=== PATIENT | female | born 1975 | race Caucasian/White ===

== ENCOUNTER → 2024-01-27 06:59 | Outpatient (REF) | payer BC, SELFPAY | LOC: RAD 06:59 | PROVIDERS: ATTENDING PHYSICIAN Obstetrics & Gynecology; FAMILY PHYSICIAN Nurse Practitioner Family | DX: R10.2 Pelvic and perineal pain (principal) | CPT/HCPCS: 76830; 76856 ==

== ENCOUNTER → 2024-04-17 18:31 | Outpatient (REF) | payer BC, SELFPAY | LOC: WDC 18:31 | PROVIDERS: ATTENDING PHYSICIAN Obstetrics & Gynecology Gynecology | DX: Z12.31 Encounter for screening mammogram for malignant neoplasm of breast (principal) | CPT/HCPCS: 77063; 77067 ==

== ENCOUNTER → 2024-06-05 15:44 | Outpatient (REF) | payer BC, SELFPAY | LOC: RAD 15:44 | PROVIDERS: ATTENDING PHYSICIAN Obstetrics & Gynecology; FAMILY PHYSICIAN Nurse Practitioner Family | DX: N83.291 Other ovarian cyst, right side (principal) | CPT/HCPCS: 76830; 76856 ==

== ENCOUNTER 2025-01-27 12:57 | Emergency (ER) | payer BC, SELFPAY ==
[2025-01-27 12:58] VITALS: BP 150/90
--- NOTE | 2025-01-27 13:33 | ED.SKININJ ---
HPI-Injury
General
Chief Complaint: Skin Problem
Source: patient
Exam Limitations: none
Time Seen by Provider: 01/27/25 13:08
Nursing documentation reviewed up to this point in time: agreed with
History of Present Illness-Injury
Initial Injury comments:
49-year-old female with no past medical history was in [place] last week. 3 days ago while in [place] she noted a small pimple on her right upper arm, she admits she has been picking at it and it has become more red, swollen and tender. She denies
F/C/N/V.
Past History
Past History
ED Past Medical History: None
ED Past Surgical History:
Social History
Tobacco: Non-smoker
Alcohol: Occasional
Personal: Single
Living: with roommate
Employment: Employed
Review of Systems
Review of Systems
Allergies reviewed?: Yes
All Other Systems: ROS reviewed and negative except as documented in HPI and ROS
Constitutional: Denies fever or chills
ABD/GI: Denies nausea
Skin: Reports other (Infection right upper arm)
Skin Exam
Abscess
Right anterior mid upper arm:
Description of abscess: fluctuant and well organized
Surrounding skin:: reddened around abscess (To about 3 cm out)
Phy Exam
Physical Exam
Physical Exam:
GENERAL: No acute distress. A&Ox3.
CONSTITUTIONAL: Afebrile.
RESPIRATORY: Regular respirations, nonlabored, lungs clear.
CARDIOVASCULAR: Regular rate and rhythm, no murmurs, no rubs.
MUSCULOSKELETAL: Full range of motion right upper extremity. Moves with ease. Well perfused.
SKIN: Warm, dry, pink
PSYCH: Normal mood and affect. Well kept, interactive and appropriate
NEUROLOGIC: Awake, alert and oriented. No focal neurological deficits
Course
Orders/Labs/Results
Orders:
Orders
01/27/25 13:33
Sulfamethox./Trimethoprim Ds [Bactrim Ds 800 mg/160 mg] 1 tablet PO NOW STA
Vital Signs
Initial and Last Documented VS:
Initial Vital Signs
Temp Pulse Resp BP Pulse Ox
98.1 F 98 16 150/90 100
01/27/25 12:58 01/27/25 12:58 01/27/25 12:58 01/27/25 12:58 01/27/25 12:58
Last Documented Vital Signs
Temp Pulse Resp BP Pulse Ox
98.1 F 98 16 150/90 100
01/27/25 12:58 01/27/25 12:58 01/27/25 12:58 01/27/25 12:58 01/27/25 12:58
Equipment Operation Instructor consulted with Physician
Equipment Operation Instructor consulted with physician?: Yes
Name of Physician Consulted: Marisol
Procedures
Incision/Drainage/Joint Aspiration
Right anterior mid upper arm:
Anethesia: 1% Lidocaine with Epi
Preparation: cleaned with alcohol wipe
Type of procedure: incise and drain
Nature of site: abscess
Description of abscess: less than 3cm and involves one area
Loculations broken up: Yes
How much fluid was obtained?: small amount
Fluid description: purulent
Treatment: packed with gauze and bandaid applied
MDM/Problems Addressed
MDM/Problems Addressed:
49-year-old female with no past medical history was in [place] last week. 3 days ago while in [place] she noted a small pimple on her right upper arm, she admits she has been picking at it and it has become more red, swollen and tender. She denies
F/C/N/V.
Abscess drained, patient tolerated procedure well. Nonstick and gauze dressing applied
Dr. Damon in
Prescription for Bactrim sent to her pharmacy
*Critical Care Note
Total Time (30-74mins, 75-104mins- exclusive of procedures): Not Applicable
ED Attending Note
-
Portions of this chart may have been created with voice recognition software.� Occasional wrong word or��sound alike� substitutions may have occurred due to the inherent limitations of voice recognition software.
Discharge Plan
Departure
Patient Disposition: Home (Routine Discharge)
Date of Disposition: 01/27/25
Time of Disposition: 13:31
Patient with high blood pressure during this ER visit?: No
Condition: Good
Discharge Problem:
Abscess of right arm, Cellulitis of right upper extremity
Instructions: Wound Care (DC), Cellulitis (Skin Infection), Adult (DC), Skin Abscess
Prescriptions:
New
sulfamethoxazole-trimethoprim [Bactrim DS] 800-160 mg tablet
1 tab PO BID Qty: 14 0RF
No Action
Vitamins
Referrals:
Your, Doctor [Other] - As needed
Activity Restrictions/Additional Instructions:
As we discussed, remove the dressing tomorrow and allow the warm shower water to run over the area.
Warm moist compresses or warm soaks 3-4 times a day for the next 3 days
Tylenol ibuprofen as needed for pain
If the packing has not fallen out by Tuesday, remove it.
Seek medical care immediately if you develop fever, chills, worsening pain, swelling or redness or feeling sicker in any way
I sent a prescription to your pharmacy for Bactrim antibiotic. Start it tomorrow as you were given a dose here today
Interventions
Interventions:
*Risk Screen - Suicide Last Done: 01/27/25 12:58
*General Assessment Last Done: 01/27/25 12:58
*Neglect/Abuse Screening Last Done: 01/27/25 12:58
*ED- Fall Risk Assessment Last Done: 01/27/25 13:07
*ED COVID-19 Vaccine History Last Done: 01/27/25 12:58
*Nursing Disposition Last Done: 01/27/25 13:38
ED-Skin Assessment Last Done: 01/27/25 13:07
Discharge Date and Time
Discharge Date/Time: 01/27/25 13:43
Print Language: HUNGARIAN
[2025-01-27] MEDS: BACTRIM DS 800 MG/160 MG 1 TABLET PO (13:36)
== END 2025-01-27 13:43 | disposition home or self-care (01) ==
LOC: EMR 12:57
PROVIDERS: EMERGENCY PHYSICIAN Emergency Medicine; FAMILY PHYSICIAN Nurse Practitioner Family
DX: L02.413 Cutaneous abscess of right upper limb (principal); L03.113 Cellulitis of right upper limb
CPT/HCPCS: 10060; 99282